=== PATIENT | male | born 1995 | race Two or more races ===

== ENCOUNTER 2020-12-23 22:34 | Emergency (ER) | payer BC ==
[~2020-12-23] VITALS: Ht 177.8 cm; Wt 70.1 kg
[2020-12-24 00:01] VITALS: BP 133/86
== END 2020-12-24 00:49 | disposition home or self-care (01) ==
LOC: ED 23:59
DX: R07.2 Precordial pain (principal); I45.19 Other right bundle-branch block; F17.200 Nicotine dependence, unspecified, uncomplicated
CPT/HCPCS: 71046; 93005; 99283